=== PATIENT | female | born 1990 | race Caucasian/White ===

== ENCOUNTER → 2016-04-03 | Outpatient (CLI) | payer BC ==
[~2016-04-03] MED LIST: ALEVE 220MG220 MG PO; CELEXA 20MG20 MG/TAB PO; CELEXA20 MG PO; COLACE 100100 MG/CAP PO; DEPO-PROVE400 MG/VIA IM; IRON325 MG; MOTRIN 600600 MG/TAB PO; PERCOCET 325 MG1 TA2 PO; PRENATAL1 TA7; ZITHROMAX Z PA250 MG PO
== END ==
LOC: COL.PUL 09:27
DX: R06.02 Shortness of breath (principal)

== ENCOUNTER → 2016-04-09 | Outpatient (CLI) | payer BC | LOC: COL.PUL 07:50 | DX: R06.02 Shortness of breath (principal) | CPT/HCPCS: J7674 ==